=== PATIENT | male | born 1995 | race African-American/Black ===

== ENCOUNTER 2017-11-19 17:32 | Emergency (ER) | payer SELFPAY ==
[~2017-11-19 17:32] MED LIST: Z.0.NO CURRENT MEDS
[2017-11-19 17:58] VITALS: BP 151/76; PULSE 99; RESP 20; TEMP 98.3; O2SAT 99
== END 2017-11-19 20:24 | disposition left against medical advice (07) ==
LOC: NED 17:32
DX: Z53.21 Procedure and treatment not carried out due to patient leaving prior to being seen by health care provider (principal)
CPT/HCPCS: 99281

== ENCOUNTER 2017-12-09 19:41 | Emergency (ER) | payer OTHER ==
[2017-12-09 19:55] VITALS: BP 139/62; PULSE 8; RESP 18; TEMP 99; O2SAT 100
[2017-12-09] MEDS ORDERED: CYCL10TA PO (19:57)
[2017-12-09] MEDS ORDERED: IBUP-232 PO (19:57)
[2017-12-09] MEDS ORDERED: CYCLOBENZAPRINE HCL 10 MG TAB PO ONE (20:00)
[2017-12-09] MEDS ORDERED: IBUPROFEN 600 MG TAB PO ONE (20:00)
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
== END 2017-12-09 20:52 ==
LOC: NEPD 19:41
DX: Z02.89 Encounter for other administrative examinations (principal); M54.2 Cervicalgia; M54.9 Dorsalgia, unspecified; S00.81XA Abrasion of other part of head, initial encounter; S60.512A Abrasion of left hand, initial encounter; S60.511A Abrasion of right hand, initial encounter; M79.651 Pain in right thigh; M79.652 Pain in left thigh; V89.2XXA Person injured in unspecified motor-vehicle accident, traffic, initial encounter; W22.10XA Striking against or struck by unspecified automobile airbag, initial encounter; G51.0 Bell's palsy; Z72.0 Tobacco use; Z86.69 Personal history of other diseases of the nervous system and sense organs; Z87.39 Personal history of other diseases of the musculoskeletal system and connective tissue; Z87.09 Personal history of other diseases of the respiratory system